=== PATIENT | female | born 1985 | race Two or more races ===

== ENCOUNTER → 2018-09-17 | Outpatient (CLI) | payer OTHER | END | disposition home or self-care (01) | LOC: CFH 10:59 | PROVIDERS: ATTEND Obstetrics & Gynecology | DX: O34.01 Maternal care for unspecified congenital malformation of uterus, first trimester (principal); O34.81 Maternal care for other abnormalities of pelvic organs, first trimester; N83.202 Unspecified ovarian cyst, left side; Z3A.01 Less than 8 weeks gestation of pregnancy | CPT/HCPCS: 76801 ==

== ENCOUNTER 2018-10-20 16:53 | Emergency (ER) | payer OTHER ==
[~2018-10-20] VITALS: Ht 157.5 cm; Wt 83.7 kg
--- NOTE | 2018-10-20 17:27 | NUR ---
PT PRESENTED TO ED WITH VAGINAL BLEEDING SINCE TODAY. PT STATED SHE IS 9-10 WEEKS . PT PLACED IN ROOM AND PLACED ON BP AND CONT. PULSE OXIMETER. ASSESSMENT COMPLETED. CALL LIGHT IN REACH. LAB INTO DRAW PT.
[2018-10-20 17:45] LABS: BASOPHILS # (AUTO) 0.05 x10^3/uL (0-0.1); BASOPHILS % (AUTO) 1 % (0-1); EOSINOPHILS # (AUTO) 0.16 x10^3/uL (0-0.4); EOSINOPHILS % (AUTO) 2 % (1-7); LYMPHOCYTES # (AUTO) 2.87 x10^3/uL (1-3.4); LYMPHOCYTES % (AUTO) 34 % (22-44); MD NO; MEAN CORPUSCULAR HEMOGLOBIN 31.3 pg (27.0-34.8); MEAN CORPUSCULAR HGB CONC 33.9 g/dL (32.4-35.8); MEAN CORPUSCULAR VOLUME 92.3 fL (80-100); MEAN PLATELET VOLUME 8.6 fL (7.4-10.4); MONOCYTES # (AUTO) 0.55 x10^3/uL (0.2-0.8); MONOCYTES % (AUTO) 7 % (2-9); NEUTROPHILS # (AUTO) 4.75 x10^3/uL (1.8-6.8); NEUTROPHILS % (AUTO) 57 % (42-75); PLATELET COUNT 315 x10^3/uL (130-400); RED BLOOD COUNT 4.57 x10^6/uL (3.82-5.3)
[2018-10-20 18:03] LABS: MICROSCOPIC INDICATED
[2018-10-20 18:07] LABS: CULTURE INDICATED? NO
--- NOTE | 2018-10-20 18:31 | NUR ---
PT AWAITING US RESULTS TO BE READ.
--- NOTE | 2018-10-20 19:11 | NUR ---
REPORT GIVEN TO JENA KAUR
--- NOTE | 2018-10-20 19:49 | NUR ---
given dc instruction pt understood pt up ambulated to check out
[2018-10-20 19:50] VITALS: BP 110/83
== END 2018-10-20 19:52 | disposition home or self-care (01) ==
LOC: ED 19:08
DX: O20.0 Threatened abortion (principal)
CPT/HCPCS: 36415; 76801; 81001; 84702; 85025; 86901; 99284

== ENCOUNTER 2019-07-12 18:49 | Emergency (ER) | payer OTHER ==
[~2019-07-12] VITALS: Ht 154.9 cm; Wt 87.9 kg
[2019-07-12 18:57] VITALS: BP 142/80
--- NOTE | 2019-07-12 19:18 | NUR ---
PT CAME TO ED COMPLAINING OF HAVING A FEELING LIKE SOMETHING IS STUCK IN HER THROAT. PT ALSO CO OF LEFT SIDED ABD PAIN. UA SENT. BLANKET PROVIDED. IS BEDSIDE.
[2019-07-12 19:27] LABS: BASOPHILS # (AUTO) 0.04 x10^3/uL (0-0.1); BASOPHILS % (AUTO) 1 % (0-1); EOSINOPHILS # (AUTO) 0.16 x10^3/uL (0-0.4); EOSINOPHILS % (AUTO) 2 % (1-7); LYMPHOCYTES # (AUTO) 2.16 x10^3/uL (1-3.4); LYMPHOCYTES % (AUTO) 27 % (22-44); MD NO; MEAN CORPUSCULAR HEMOGLOBIN 31.2 pg (27.0-34.8); MEAN CORPUSCULAR HGB CONC 34.4 g/dL (32.4-35.8); MEAN CORPUSCULAR VOLUME 90.8 fL (80-100); MEAN PLATELET VOLUME 8.6 fL (7.4-10.4); MONOCYTES # (AUTO) 0.45 x10^3/uL (0.2-0.8); MONOCYTES % (AUTO) 6 % (2-9); NEUTROPHILS # (AUTO) 5.19 x10^3/uL (1.8-6.8); NEUTROPHILS % (AUTO) 65 % (42-75); PLATELET COUNT 348 x10^3/uL (130-400); RED BLOOD COUNT 4.73 x10^6/uL (3.82-5.3)
[2019-07-12 19:35] LABS: ALANINE AMINOTRANSFERASE 31 U/L (12-78); ALBUMIN 3.9 g/dL (3.4-5.0); ANION GAP 8 mmol/L (5-15); CALCIUM 8.7 mg/dL (8.5-10.1); CHLORIDE 106 mmol/L (98-107)
[2019-07-12 19:36] LABS: MICROSCOPIC NOT IND
[2019-07-12 19:38] LABS: CULTURE INDICATED? NO
[2019-07-12 19:40] LABS: ALKALINE PHOSPHATASE 95 U/L (45-117); BILIRUBIN,TOTAL 0.3 mg/dL (0.2-1.0); CREATININE 0.72 mg/dL (0.55-1.02); TOTAL PROTEIN 7.7 g/dL (6.4-8.2)
[2019-07-12] MEDS ORDERED: MAALOX/HYOSCYAMINE/LIDOCAINE 45 ML BTL ONE (20:07)
[2019-07-12] MEDS ORDERED: MAALOX/HYOSCYAMINE/LIDOCAINE 45 ML BTL PO ONE (20:30)
== END 2019-07-12 20:21 | disposition home or self-care (01) ==
LOC: ED 20:00
DX: S39.011A Strain of muscle, fascia and tendon of abdomen, initial encounter (principal); K20.9 Esophagitis, unspecified; X58.XXXA Exposure to other specified factors, initial encounter; Y93.89 Activity, other specified; Y92.89 Other specified places as the place of occurrence of the external cause; Y99.8 Other external cause status
CPT/HCPCS: 36415; 74220; 80053; 81003; 83690; 84702; 85025; 99284